=== PATIENT | male | born 1995 | race African-American/Black ===

== ENCOUNTER 2024-01-04 20:43 | Emergency (ER) | payer OTHER ==
[2024-01-04 20:57] VITALS: BP 111/55; PULSE 92; RESP 20; TEMP 98.2; BMI 26.2
[2024-01-04] MEDS ORDERED: ONDANSETRON 4 MG/2 ML VIAL ONE (21:20)
[2024-01-04] MEDS ORDERED: ACETAMINOPHEN INJECTION 100 ML IVPB ONE (21:20)
[2024-01-04] MEDS ORDERED: FAMOTIDINE 20 MG/50 ML IVPB 20 MG/50 ML MG IVPB ONE (21:21)
[2024-01-04] MEDS: FAMOTIDINE 20 MG/50 ML IVPB 20 MG/50 ML MG IVPB ONE (21:37)
[2024-01-04] MEDS: ACETAMINOPHEN 1000 MG/100 ML BAG IVPB ONE (21:37)
[2024-01-04] MEDS: ONDANSETRON 4 MG/2 ML VIAL IVPUSH ONE (21:37)
[2024-01-04] MEDS: LACTATED RINGERS SOLUTION 1000 ML INFUS.BAG IV ONE (21:37)
== END 2024-01-04 22:51 | disposition home or self-care (01) ==
LOC: JER 20:43
PROC: 3E033GC Introduction of Other Therapeutic Substance into Peripheral Vein, Percutaneous Approach (ICD-10-PCS; principal; 2024-01-04)
PROC: 3E033GC Introduction of Other Therapeutic Substance into Peripheral Vein, Percutaneous Approach (ICD-10-PCS; 2024-01-04)
PROC: 3E033NZ Introduction of Analgesics, Hypnotics, Sedatives into Peripheral Vein, Percutaneous Approach (ICD-10-PCS; 2024-01-04)
DX: R11.2 Nausea with vomiting, unspecified (principal); R19.7 Diarrhea, unspecified; R50.9 Fever, unspecified; R52 Pain, unspecified; J10.1 Influenza due to other identified influenza virus with other respiratory manifestations; Z20.822 Contact with and (suspected) exposure to COVID-19
CPT/HCPCS: 0241U-QW; 99284-25; J0131

== ENCOUNTER 2024-01-05 01:12 | Emergency (ER) | payer OTHER ==
[2024-01-05 01:20] VITALS: BP 136/73; PULSE 93; RESP 20; TEMP 98.4; BMI 26.2
[2024-01-05] MEDS ORDERED: KETOROLAC TROMETHAMINE 15 MG/ML VIAL ONE (01:58)
[2024-01-05] MEDS ORDERED: ONDANSETRON 4 MG/2 ML VIAL ONE (01:58)
[2024-01-05] MEDS: SODIUM CHLORIDE 0.9% 500 ML INFUS.BAG IV ONE (02:19)
[2024-01-05] MEDS: ONDANSETRON 4 MG/2 ML VIAL IVPUSH ONE (02:19)
[2024-01-05] MEDS: KETOROLAC TROMETHAMINE 15 MG/ML VIAL IVPUSH ONE (02:20)
[2024-01-05 02:23] LABS: HEMATOCRIT 44.3 % (35.4-49); HEMOGLOBIN 15.2 GM/dL (11.7-16.9); MCH 28.6 pg (25.7-33.7); MCHC 34.5 g/dl (32.0-35.9); MEAN CELL VOLUME 82.9 fl (80-96); MEAN PLT VOLUME 7.9 fl (7.5-11.1); PLATELET COUNT 184 10^3/uL (134-434); RBC 5.34 M/mm3 (4.00-5.60); WHITE BLOOD COUNT 9.4 K/mm3 (4.0-10.0)
[2024-01-05 02:31] LABS: INR 1.34 (0.83-1.09)
[2024-01-05 02:33] LABS: ACTIVATED PTT 29.1 SECONDS (25.2-36.5)
[2024-01-05] MEDS: ACETAMINOPHEN 1000 MG/100 ML BAG IVPB ONE (02:34)
[2024-01-05 02:40] LABS: POTASSIUM 3.9 mmol/L (3.5-5.1)
[2024-01-05 02:42] LABS: CALCIUM 8.7 mg/dL (8.5-10.1)
[2024-01-05 02:43] LABS: ALBUMIN 3.8 g/dl (3.4-5.0); BLOOD UREA NITROGEN 9.8 mg/dL (7-18); MAGNESIUM 1.7 mg/dL (1.8-2.4)
[2024-01-05 02:46] LABS: CREATININE 1.4 mg/dL (0.55-1.3)
[2024-01-05 02:48] LABS: BILIRUBIN,TOTAL 1.1 mg/dL (0.2-1); TOT PROT 7.7 g/dl (6.4-8.2)
[2024-01-05] MEDS ORDERED: MAGNESIUM OXIDE 400 MG TABLET (FP) ONE (03:01)
[2024-01-05] MEDS: MAGNESIUM 1GM/D5W - 1 GM/100 ML IVPB IVPB ONE (03:03)
[2024-01-05] MEDS: MAGNESIUM SULFATE IN WATER 2 GM/50 ML IVPB IVPB ONE (03:03)
[2024-01-05] MEDS: MAGNESIUM OXIDE 400 MG TABLET (FP) PO ONE (03:03)
[2024-01-05 04:54] LABS: ANISOCYTOSIS 1+; MACROCYTOSIS 1+; ROULEAU 2+
== END 2024-01-05 03:19 | disposition home or self-care (01) ==
LOC: JER 01:12
PROC: 3E0333Z Introduction of Anti-inflammatory into Peripheral Vein, Percutaneous Approach (ICD-10-PCS; principal; 2024-01-05)
PROC: 3E033GC Introduction of Other Therapeutic Substance into Peripheral Vein, Percutaneous Approach (ICD-10-PCS; 2024-01-05)
DX: R11.2 Nausea with vomiting, unspecified (principal); R10.13 Epigastric pain; R10.11 Right upper quadrant pain
CPT/HCPCS: 36415; 76705-TC; 80053; 83690; 83735; 85025; 85610; 85730; 86850; 86900; 86901; 99284-25